=== PATIENT | female | born 1945 | race Caucasian/White ===

== ENCOUNTER → 2016-06-30 | Outpatient (CLI) | payer MEDICARE, OTHER ==
[~2016-06-30] MED LIST: IOHEXOL 300 MG/ML 100ml INJECTION ONE; NORMAL SALINE 100 ML ONE; SALINE FLUSH 10ml SYRINGE ONE
--- NOTE | 2016-06-30 10:31 | DI ---
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 Coronal and sagittal two-dimensional reformats. Automated Exposure Control and Iterative Reconstruction dose reducing techniques were utilized. Contrast: Omnipaque 300 99 mL Findings: The included portions of the lung bases demonstrate some pleural-based nodularity. No pleural effusion. Heart size is normal. The liver and spleen are unremarkable. Adrenal glands are normal. The kidneys enhance homogeneously and symmetrically. The pancreas is normal. No retroperitoneal or mesenteric adenopathy. The abdominal aorta is nonaneurysmal. Pelvis: There is no significant distal colonic diverticulosis or evidence of diverticulitis. The uterus is unremarkable. There is a bulky round calcification within the left ovary. No definite pelvic sidewall adenopathy. No free fluid. The urinary bladder is not distended. No inguinal adenopathy. 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 There are also small foci in the proximal femora bilaterally. Impression: Extensive diffuse skeletal metastases. .
--- NOTE | 2016-06-30 10:35 | DI ---
Indication: ITS.REASON: C50.812 Malignant neoplasm of overlapping sites of left female br PROCEDURE: NM BONE SCAN, WHOLE BODY: Encounter: Subsequent Comparison: None Correlation: CT dated 06/30/2016 Technique: 26.6 mCi of Tc-99m MDP was administered intravenously. Anterior and posterior planar whole-body and spot images were obtained. FINDINGS: There is some longitudinal activity in the posterior left eighth rib that is suspicious for a skeletal metastasis. The scan demonstrates the expected normal biodistribution for the radiotracer. There is probable degenerative uptake seen in both shoulders and both knees. There is no abnormal radiotracer uptake to suggest bony metastasis. IMPRESSION: Suspicious activity in the posterior left eighth rib with longitudinal orientation along the ribs suggesting metastasis. .
== END ==
LOC: IMA 06:14
PROVIDERS: ATTEND Internal Medicine Hematology & Oncology
DX: C50.812 Malignant neoplasm of overlapping sites of left female breast (principal); C79.51 Secondary malignant neoplasm of bone
CPT/HCPCS: 74177; 78306; A9503; J7050; Q9967